=== PATIENT | female | born 1950 | race Caucasian/White ===

== ENCOUNTER 2017-10-26 15:36 | Emergency (ER) | payer OTHER ==
[~2017-10-26] VITALS: Ht 172.7 cm; Wt 73.0 kg
[2017-10-26 15:44] VITALS: BP 171/79; PULSE 94; RESP 18; TEMP 98.1; O2SAT 94
[2017-10-26] MEDS ORDERED: LETR2.5T PO (16:43)
[2017-10-26] MEDS ORDERED: ZITHTAB PO (17:07)
[2017-10-26] MEDS ORDERED: LOMO2.5T PO (17:07)
--- NOTE | 2017-10-26 17:07 | PD ---
HPI Chief Complaint: Respiratory Symptoms Time Seen by Provider: 16:49 Travel History International Travel<30 days: No Contact w/Intl Traveler<30days: No Traveled to known affect area: No History of Present Illness HPI 67-year-old female complains of headache, coughing congestion, sore throat, feeling hot and cold, and diarrhea and dizziness. Patient states the symptoms started 4 days ago. Patient states that the cough is persistent mildly productive. Patient denies any chest pain or shortness of breath. Patient stated the diarrhea started yesterday. Patient states that she has mild dizziness today. Patient denies abdominal pain. Patient denies any back pain. Patient has been drinking fluids. PFSH Past Medical History Cancer: Yes (breast cancer) Respiratory: Yes Influenza Vaccination: No ?: Not Menopausal: Yes Past Surgical History Surgical History: No Previous Surgery Social History Alcohol Use: No Tobacco Use: Yes Substance Use: No Allergies-Medications (Allergen,Severity, Reaction): Coded Allergies: oyster extract (Verified Adverse Reaction, Intermediate, N/V/D, 10/26/17) scallops (Verified Adverse Reaction, Intermediate, N/V/D, 10/26/17) Reported Meds & Prescriptions Reported Meds & Active Scripts Active Reported Letrozole 2.5 Mg Tab 1 Tab PO DAILY Review of Systems General / Constitutional: No: Fever Eyes: No: Visual changes HENT: Positive: Headaches, Sore Throat Cardiovascular: No: Chest Pain or Discomfort Respiratory: Positive: Cough, No: Shortness of Breath Gastrointestinal: Positive: Diarrhea, No: Abdominal Pain Genitourinary: No: Dysuria Musculoskeletal: No: Pain Skin: No Rash Neurologic: No: Weakness Psychiatric: No: Depression Endocrine: No: Polydipsia Hematologic/Lymphatic: No: Easy Bruising Physical Exam Narrative GENERAL: Well-nourished, well-developed patient. SKIN: Focused skin assessment warm/dry. HEAD: Normocephalic. EYES: No scleral icterus. No injection or drainage. TM: Clear. Throat: Mouth erythematous. NECK: Supple, trachea midline. No JVD or lymphadenopathy. No meningismus CARDIOVASCULAR: Regular rate and rhythm without murmurs, gallops, or rubs. RESPIRATORY: Breath sounds equal bilaterally. No accessory muscle use. GASTROINTESTINAL: Abdomen soft, non-tender, nondistended. MUSCULOSKELETAL: No cyanosis, or edema. BACK: Nontender without obvious deformity. No CVA tenderness. Neurologic exam normal. Data Data Last Documented VS Vital Signs Date Time Temp Pulse Resp B/P (MAP) Pulse Ox O2 Delivery O2 Flow Rate FiO2 10/26/17 16:38 95 Room Air 10/26/17 15:44 98.1 94 18 171/79 (109) [facility] Medical Decision Making Medical Screen Exam Complete: Yes Emergency Medical Condition: Yes Differential Diagnosis Differential diagnosis including viral syndrome, enteritis, bronchitis, pneumonia, gastroenteritis. Narrative Course 67-year-old female complains headache, sore throat, coughing, diarrhea. Diagnosis Primary Impression: Bronchitis Additional Impression: Viral syndrome Patient Instructions: General Instructions Additional Instructions: Take medication as directed. Tylenol for fever headache. Follow-up with personal physician. Return if worse. Med/Other Pt SpecificInfo: Prescription(s) given Scripts Azithromycin (Zithromax Z-Constantin) 250 Mg Dspk 250 MG PO DIRECTED for Infection, #1 DSPK 0 Refills 500 MG (2 tabs) day 1, then 1 tab days 2-5. Prov: Michael Saha MD 10/26/17 Diphenoxylate-Atropine (Lomotil) 2.5-0.025 Mg Tab 1 TAB PO Q6H Y for DIARRHEA, #10 TAB 0 Refills Prov: Michael Saha MD 10/26/17 Disposition: 01 DISCHARGE HOME Condition: Stable Michael Saha MD Oct 26, 2017 17:07
== END 2017-10-26 17:15 | disposition home or self-care (01) ==
LOC: PHED 15:36
DX: J40 Bronchitis, not specified as acute or chronic (principal); B34.9 Viral infection, unspecified; R51 Headache; R05 Cough; R07.0 Pain in throat; R19.7 Diarrhea, unspecified; R42 Dizziness and giddiness; Z72.0 Tobacco use; Z85.3 Personal history of malignant neoplasm of breast; Z87.09 Personal history of other diseases of the respiratory system
CPT/HCPCS: 99283